=== PATIENT | female | born 1955 ===

== ENCOUNTER → 2016-10-10 | Day surgery (SDC) | payer BC ==
[~2016-10-10] VITALS: Ht 157.5 cm; Wt 72.6 kg
[2016-10-10] VITALS (18 sets, daily range): BP systolic 102–134; BP diastolic 46–84
[~2016-10-10] MED LIST: NKM
--- NOTE | 2016-10-10 08:52 | Pre-Procedure Note/Attestation ---
Pre-Procedure Note/Attestation Complete Prior to Procedure Planned Procedure: not applicable Procedure Narrative: egd/colon Indications for Procedure Pre-Operative Diagnosis: gerd, screening colon Attestation I attest that I discussed the nature of the procedure; its benefits; risks and complications; and alternatives (and the risks and benefits of such alternatives ), prior to the procedure, with the patient (or the patient's legal sales representative trainee). I attest that, if there was a reasonable possibility of needing a blood transfusion, the patient (or the patient's legal sales representative trainee) was given the [facility] standardized written summary, pursuant to the [place] Blood Safety Act ([place] Health and Safety Code # 1645, as amended). I attest that I re-evaluated the patient just prior to the surgery and that there has been no change in the patient's H&P, except as documented below: OTILIA BARBOSA Oct 10, 2016 08:52
--- NOTE | 2016-10-10 08:54 | Short Stay Surgery H&P ---
History of Present Illness History of Present Illness Chief Complaint screening colon, GERD HPI Shanon Velasquez is a 60 year old female who was admitted on for Gerd,Colon Screening Patient History Allergies: Coded Allergies: No Known Allergies (Unverified , 10/10/16) PAST MEDICAL HISTORY: (1) GERD (gastroesophageal reflux disease) Past Surgeries: Social History: Medication History Scheduled No Known Medications* (NKM - No Known Medications*), 0 ., (Reported) Review of Systems Cardiovascular: Reports: no symptoms Respiratory: Reports: no symptoms Skeletal: Reports: no symptoms Gastrointestinal: Reports: no symptoms Genitourinary: Reports: no symptoms Neurologic: Reports: no symptoms Endocrine: Reports: no symptoms Hematologic: Reports: no symptoms Physical Exam Vital Signs Last Vital Signs Date Time Temp Pulse Resp B/P Pulse Ox O2 Delivery O2 Flow Rate FiO2 10/10/16 08:41 97.9 73 20 107/60 97 Room Air Skin: normal HENT: normal Heart: normal Lungs: normal Abdomen: normal Extremities: normal Plan Plan of Care egd/colonoscopy Final Diagnosis: Attestation Are the patient's medical conditions optimized for surgery? OTILIA BARBOSA Oct 10, 2016 08:54
--- NOTE | 2016-10-10 10:37 | Moderate Sedation - Procedural ---
Moderate Sedation HPI Home Medication Reported Medications No Known Medications* (NKM - No Known Medications*) ., 0 ., 0 Refills 10/10/16 Patient History Allergies: Coded Allergies: No Known Allergies (Unverified , 10/10/16) PAST MEDICAL HISTORY: Past Surgeries: Social History: Pre-Procedural Mod Sedation Pre-Assessment Time: 09:45 Pre-Sedation Assessment: Elective, Eval. Immed. Prior to Sed, Reviewed H&P, Patient Examined, Pre-proc Edu. done, Plan for Sedation Discuss, Change to pts cond. noted Airway Assessment (Malampati): II Heart: normal Lungs: normal Abdomen: normal Extremities: normal Pre-op Diagnosis: screening colon, GERD Evaluation Hx of untoward rxns to mod sed: No Procedures/Plans: EGD, Colonoscopy Plan for Moderate Sedation: Midazolam, Fentanyl ASA Score: II Informed Consent The nature of the procedure/sedation; its benefits; risks and complications; and alternatives (and the risks and benefits of such alternatives) were discussed with the patient (or their legal manufacturer representative), prior to the procedure. All questions were answered to the patient's (or their legal manufacturer representative's) satisfaction and the patient (or their legal manufacturer representative) gave informed consent to the procedure. I attest that I re-evaluated the patient just prior to the surgery and that there has been no change in the patient's H&P, except as documented below: Post Procedure Assessment Post Procedure TIme: 10:37 Communication: No Apparent Limitation Mental Status: Awake Respiration: Unlabored Skin Condition: WNL Adomen: WNL Nausea: NO Vomiting: NO OTILIA BARBOSA Oct 10, 2016 10:37
--- NOTE | 2016-10-10 10:39 | Endoscopy Procedure Note ---
Endoscopy Procedure Note Indication for Procedure: screening colon, GERD Procedures Performed: EGD, colonoscopy Operative Findings/Diagnosis: gastritis, diverticulosis Specimen: yes Pt Tolerated Procedure Well: Yes Estimated Blood Loss: none Anesthesiologist: none Anesthesia: moderate sedation Medication Given: midazolam, flumazenil Implant(s) used?: No 50 yrs or older w/o bx or poly: Yes 10yrs. F/U not recommended: Yes If not recommended, why?: Above average risk 10 yrs. F/U needed: Yes 18 years or older w/prev. colo: No OTILIA BARBOSA Oct 10, 2016 10:39
--- NOTE | 2016-10-10 20:08 | Procedure Note ---
DATE OF PROCEDURE: 10/10/2016 SURGEON: Nishant Hansen M.D. PROCEDURE: Upper endoscopy with biopsy and colonoscopy. ANESTHESIA: A 125 mcg of fentanyl and 5 mg of Versed. INDICATION: Screening colonoscopy evaluation and chronic gastroesophageal reflux disease. REASON FOR PROCEDURE: The procedure, risks, benefits, and possible consequences, including hemorrhage, aspiration, perforation and infection, and alternative treatments, were explained to the patient/legal guardian by Dr. Nishant Hansen and the patient/legal guardian understood and accepted these risks. DESCRIPTION OF PROCEDURE: After informed consent was obtained and the patient was adequately sedated, the upper endoscope was advanced from mouth into the second portion of the duodenum and retroflexion was performed in the stomach. The patient has evidence of diffuse gastritis. Random biopsy from antrum of the stomach was obtained to rule out H. pylori infection. At this time, the upper endoscope was retrieved and the patient was turned over for colonoscopy. First, a rectal exam was performed, which shows positive for internal hemorrhoids. Then, the scope was advanced from the rectum into the cecum documented by appendiceal orifice, ileocecal valve, and right upper quadrant palpation. Actually, the procedure started with the colonoscope, but we got into the sigmoid area, which showed significant diverticulosis and narrowing of the lumen, we switched to upper scope. We were able to advance to hepatic flexure area. We came back and then went back again with a regular adult scope and then all the way to the end. The patient had good prep. A significant diverticulosis throughout the colon, but in the rectosigmoid area, was very severe to the point we had to change the scope once. No obvious mass, polyp, or any other pathology was seen. Retroflexion of rectum showed evidence of internal hemorrhoids. SUMMARY OF FINDINGS: 1. Gastritis. 2. Significant diverticulosis. 3. Internal hemorrhoids. RECOMMENDATION: Follow up biopsy results and treat accordingly. Nishant Hansen M.D. DR: JEAN JOB#: [id number] CC:
--- NOTE | 2016-10-13 14:11 | Cardiology Report ---
APPROVED REPORT EKG Measurement Heart [id number] MT [id number] Normal sinus rhythm Normal ECG
== END | disposition home or self-care (01) ==
LOC: GAS 07:12
DX: Z12.11 Encounter for screening for malignant neoplasm of colon (principal); K64.8 Other hemorrhoids; K57.30 Diverticulosis of large intestine without perforation or abscess without bleeding; K21.9 Gastro-esophageal reflux disease without esophagitis; K29.50 Unspecified chronic gastritis without bleeding
CPT/HCPCS: 93005